=== PATIENT | female | born 1995 | race Caucasian/White ===

== ENCOUNTER 2024-12-22 08:49 | Outpatient (RCR) | payer BC, SELFPAY ==
--- OUTSIDE RECORDS SUMMARY | 2024-12-22 08:58 | XMS_ITS | Clinical Summary ---
Author Organization [facility] on Address [address] [place] [phone] Care Team Providers Care Cattle Rancher Name Role Phone Unavailable Primary Care Provider Unavailabl e Allergies No known active allergies Medications No known medications Active Problems No known active problems Social History Tobacco Use Types Packs/Day Years Used Date Smoking Tobacco: Never Smokeless Tobacco: Never Alcohol Use Standard Drinks/Week Comments Never 0 (1 standard drink = 0.6 oz pur e alcohol) Comments No Sex and Gender Information Value Date Recorded Sex Assigned at Not on file Legal Sex Female 12:45 PM CDT Gender Identity Not on file Sexual Orientation Not on file Last Filed Vital Signs Vital Sign Reading Time Taken Comments Blood Pressure 105/68 06/12/2021 5:03 PM CDT Pulse 73 06/12/2021 5:03 PM CDT Temperature 36.6 C (97.9 F) 06/12/2021 5:03 PM CDT Respiratory Rate 16 06/12/2021 5:03 PM CDT Oxygen Saturation 99% 06/12/2021 5:03 PM CDT Inhaled Oxygen Concentration - - Weight 65.8 kg (145 lb) 06/12/2021 5:03 PM CDT Height 162.6 cm (5' 4) 06/12/2021 5:03 PM CDT Body Mass Index 24.89 06/12/2021 5:03 PM CDT Plan of Treatment Health Maintenance Due Date Last Done Comments DTAP/TDAP/TD VACCINES (1 - Tdap) 2014 HEPATITIS B VACCINES (1 of 3 - 19+ 3-dose series) 2014 CERVICAL CANCER SCREENING 2016 HPV/Cotest (21-29) 2016 PAP SMEAR 2016 INFLUENZA VACCINE (#1) 2024 HPV VACCINES Aged Out No longer eligi ble based on patient's age to complete this topic Insurance [employer]
--- OUTSIDE RECORDS SUMMARY | 2024-12-22 08:59 | XMS_ITS | Data Portability ---
Author Organization [facility] Address [address] [place] [address] Assessment No assessment recorded. Plan of Treatment Reminders Order Date Submit Date Provider Last Modified By Organization Details Last Modified Time Details Appointments None recorded. Lab None recorded. Referral None recorded. Procedures None recorded. Surgeries None recorded. Imaging XR, neck, soft tissue 2015 016 [facility], [address] [place], [address], 6 04:39:53 Medication Orders amoxicillin 500 mg capsule 2015 016 zach [facility], [address] [place] [address], [id number], 7 11:50:17 Zithromax Z-Adán 250 mg tablet 2015 016 ugo [facility], [address] [place] [address], [id number], 6 11:20:05 fluticasone propionate 50 mcg/actuati on nasal spray,suspe nsion 2015 016 [facility], [address] [place] [address], [id number], 6 04:39:31 naproxen 500 mg tablet 2015 016 [facility], [address] [place] [address], [id number], 6 04:39:31 Patient TargetsNo targets recorded. Patient Instructions Encounter Date Encounter Id Patient Instructions Last Modified By Organization Details Last Modified Time 05/17/2017 [id number] Increase fluids, cool foods today, avoid hot, spicy foods for 4 - 5 days. If fever, cough, sore throat or headache, return to care or primary office immediately. OTC tylenol or ibuprofen for discomfort. [email or web address] Not available 05/17/2017 12:16:35 This document ma y have been transcribed with voice recognition technology. Errors in spelling, punctuation, or grammar errors are possible in the pouring crane operator process. If you see a material mistake or require further clarification, contact my office for further information. [email or web address] Not available 05/17/2017 11:46:34 Hospital Discharge Instructions Patient Instructions None recorded. Patient Goals None recorded. Problems Name Problem SNOMED Code Status Onset Date Resolution Date Notes Provider Name and Address Organization Details Recorded Time Chronic back pain [id number] Active Yessica Angeles [facility] 6 09:17:05 Problem Notes None recorded. Medical Equipment None Reported. Allergies No known drug allergies Medications Name Sig Start Date Stop Date Status Note LastModified by Organization Details LastModified Time desonide 0.05 % crea 02/19 completed Not Available Not Available Not Available chlorhexidi ne gluconate 0.12 % soln 02/19 completed Not Available Not Available Not Available strattera 60 mg caps 08/02 completed Not Available Not Available Not Available bupropion hcl xl 150 mg tb24 02/19 completed Not Available Not Available Not Available benzonatate 200 mg caps 02/19 completed Not Available Not Available Not Available hydrocodone /acetaminop hen 7.5-325 mg tabs 02/19 completed Not Available Not Available Not Available sulfamethox azole/trime thoprim ds 800-160 mg tabs 02/19 completed Not Available Not Available Not Available azithromyci n 250 mg tabs 08/02 completed Not Available Not Available Not Available amoxicillin /clavulanat e potassium 500-125 mg tabs 02/19 completed Not Available Not Available Not Available methylpheni date hcl er 54 mg tb24 02/19 completed Not Available Not Available Not Available amoxicillin 500 mg caps 02/19 completed Not Available Not Available Not Available ketoconazol e 2 % sham 02/19 completed Not Available Not Available Not Available methylpredn isolone dose pack 4 mg tbpk 02/19 completed Not Available Not Available Not Available cyclobenzap rine hcl 10 mg tabs 02/19 completed Not Available Not Available Not Available trinessa 0.18/0.215/ 0.25 mg-35 mcg tabs 08/02 completed Not Available Not Available Not Available polyethylen e glycol 3350 powd 08/02 completed Not Available Not Available Not Available naproxen 500 mg tabs 08/02 completed Not Available Not Available Not Available methylpheni date hcl er 36 mg tbcr 02/19 completed Not Available Not Available Not Available sertraline hcl 50 mg tabs 02/19 completed Not Available Not Available Not Available diazepam 10 mg tabs 02/19 completed Not Available Not Available Not Available methylpheni date hcl er 54 mg tbcr 02/19 completed Not Available Not Available Not Available fluticasone propionate 50 mcg/act susp 08/02 completed Not Available Not Available Not Available amoxicillin 500 mg capsule Take 1 capsule every 12 hours by oral route for 10 days. 05/17 completed Not Available Not Available Not Available Zithromax Z-Adán 250 mg tablet TAKE 2 TABLETS (500 MG) BY ORAL ROUTE ONCE DAILY FOR 1 DAY THEN 1 TABLET (250 MG) BY ORAL ROUTE ONCE DAILY FOR 4 DAYS 08/02 completed Not Available Not Available Not Available Zoloft 50 mg tablet Take 1 tablet every day by oral route. 01/28 completed Not Available Not Available Not Available Concerta 54 mg tablet,exte nded release Take 1 tablet every day by oral route. 05/30 completed Not Available Not Available Not Available fluticasone propionate 50 mcg/actuati on nasal spray,suspe nsion Inhale 2 sprays every day by intranasa l route. 06/30 completed Not Available Not Available Not Available naproxen 500 mg tablet Take 1 tablet twice a day by oral route. 06/30 completed Not Available Not Available Not Available TriNessa (28) 0.18 mg(7)/0.215 mg(7)/0.25 mg(7)-35 mcg tablet TAKE 1 TABLET BY MOUTH EVERY DAY DIRECTED -DO NOT SMOKE 2015 active Not Available Not Available Not Avai lable Doryx as directed 02/19 completed Not Available Not Available Not Available Tri-Sprinte c (28) as directed 02/19 completed Not Available Not Available Not Available Vitals Date Recorded Body height Body mass index (BMI) Body weight Body temperature Heart rate Oxygen saturation Oxygen saturation in Arterial blood by Pulse oximetry Systolic blood pressure Diastolic blood pressure Provider Name and Address Organization Details Last Updated DateTime 7 162.56 cm 26.5 kg/m2 43578 g 97.9 [degF] 84 /min 98 % 98 % 90 mm[Hg] 66 mm[Hg] Philippe WALLS CMA [address] [place], [address] [place] [address] 7 11:49:01 Date Recorded Pain severity - 0-10 verbal numeric rating [Score] - Reported Provider Name and Address Organization Details Last Updated DateTime 05/17/2017 0 Not Available [facility] 8 06:32:32 Date Recorded Body height Body weight Body mass index (BMI) Body temperature Systolic blood pressure Diastolic blood pressure Provider Name and Address Organization Details Last Updated DateTime 6 162.56 cm 47223 g 23 kg/m2 97.5 [degF] 110 mm[Hg] 80 mm[Hg] Yessica Prouse [facility] 6 09:23:10 Date Recorded Body height Body weight Body mass index (BMI) Body temperature Systolic blood pressure Diastolic blood pressure Provider Name and Address Organization Details Last Updated DateTime 6 162.56 cm 25502 g 23.1 kg/m2 97.5 [degF] 102 mm[Hg] 66 mm[Hg] Jean-Claude HERNANDEZ LPN [address] [place], [address] [place] [address] 6 11:02:58 Date Recorded Body height Body weight Body mass index (BMI) Body temperature Heart rate Oxygen saturation Oxygen saturation in Arterial blood by Pulse oximetry Systolic blood pressure Diastolic blood pressure Provider Name and Address Organization Details Last Updated DateTime 6 162.56 cm 19217.1 8 g 23.7 kg/m2 97.3 [degF] 81 /min 98 % 98 % 110 mm[Hg] 66 mm[Hg] [facility] 6 10:09:06 Date Recorded Body height Body weight Body mass index (BMI) Body temperature Oxygen saturation Oxygen saturation in Arterial blood by Pulse oximetry Heart rate Systolic blood pressure Diastolic blood pressure Provider Name and Address Organization Details Last Updated DateTime 6 162.56 cm 98203 g 24 kg/m2 97.2 [degF] 98 % 98 % 76 /min 118 mm[Hg] 66 mm[Hg] [facility] 6 11:30:24 Date Recorded Pain severity - 0-10 verbal numeric rating [Score] - Reported Provider Name and Address Organization Details Last Updated DateTime 06/30/2016 3 Not Available [facility] 8 06:29:50 Date Recorded Body height Body weight Body mass index (BMI) Body temperature Heart rate Oxygen saturation Oxygen saturation in Arterial blood by Pulse oximetry Systolic blood pressure Diastolic blood pressure Provider Name and Address Organization Details Last Updated DateTime 6 162.56 cm 66605.3 7 g 24.1 kg/m2 98.4 [degF] 108 /min 95 % 95 % 112 mm[Hg] 63 mm[Hg] Padmini Al[facility] 6 11:19:25 Date Recorded Pain severity - 0-10 verbal numeric rating [Score] - Reported Provider Name and Address Organization Details Last Updated DateTime 08/02/2016 7 Not Available [facility] 8 06:30:00 Social History Question Answer Notes LastModified by Organizat ion Details LastModified Time Tobacco Smoking Status [facility]2016 09:24:33 What Is Your Level Of Caffeine Consumption? Occasional Information not available 01/29/2016 How Much Tobacco Do You Chew? None Information not available 02/20/2016 What Type Of Diet Are You Following? REGULAR Information not available 01/29/2016 Which Illicit Or Recreational Drugs Have You Used? None Information not available 02/20/2016 Are You Exposed To Second Hand Smoke ? Yes Information not available 01/29/2016 What Was The Date Of Your Most Recent Tobacco Screening? 05/17/2017 Information not available 03/03/2019 Sex: Unknown Functional Status Question Answer Note LastModified by Organizat ion Details LastModified Time What is your level of alcohol consumption? Moderate every weekend [email or web address] Information not available 05/17/2017 What is your occupation? student Information not available 01/29/2016 Mental Status None recorded. Family History Relationship Description Onset Age of this Age Resolved Age Notes LastModified by Organization Details LastModified Time Father No current problems or disability [email or web address] Not available 08/02 11:20:59 Mother No current problems or disability [email or web address] Not available 08/02 11:20:59 Medical History Condition Response Coronary Artery Disease N Gout N Other N Blood Diseases N Kidney Stones N Hyperthyroidism N Blood Transfusion N Breast Cancer N Depression N COPD N Lung Disease N Hypothyroidism N Defects or Inherited Disease N Developmental or Behavioral Disorders N Breast Problem N Difficulty Swallowing N Meniere's disease N Anxiety Disorder N Muscle, Joint, or Bone Problems N Vision or Eye Problems N Arthritis N Polyps N Infertility N Cancer N Stroke N Raynaud's Disease N Endometriosis N High Cholesterol N Liver Disease N Headaches N Fibromyalgia N Vulvar Lesion N Kidney Disease N Allergies/Hayfever N Heart Problems N Anesthesia Complications N/V, Diff Intub ) N Ear or Hearing Problems N Hospitalizations N GI Problems N Acne N ADD/ADHD N Skin Problems N Eating Disorder N Anemia N Constipation N Mental Illness N Ovarian Cancer N Diabetes N Bedwetting N Seizures/Epilepsy N Tuberculosis N Eczema N Abuse/Domestic Violence N Asthma N Substance Abuse N Reflux/GERD N Hepatitis N Heart Disease N Pulmonary Embolism N Chronic Ear Infections N Pre-Eclampsia N Hypertension N Chicken Pox N Autism Spectrum Disorder (ASD) N Thrombophilias N Gynecological HistoryNo gynecological history recorded. Obstetrics History GPAL:G 0 P 0 0 0 0 Past Encounters None Reported. Health Concerns Section Related Observation LastModified by Organization Detai ls LastModified Time None Recorded Concern Status LastModified by Organization Details LastModified Time None Recorded Advance Directives Directive None Recorded Payers Insurance Date Sequence Insurance Name Policy Number Policy Lo Covered Member ID Lo Member ID Guarantor Name 05/17/[address] [place] [address] [employer] ([facility]) [id number] Virginia Otero [id number] Virginia Otero 08/19/2015 SLIDING FEE SCHEDULE - DISCOUNT Virginia Otero Notes Date Note Type Note Provider Name and Address Organization Details Recorded Time 01/29/2016 text/html Suzy a 20-year-old who is generally followed by my nurse practitioner. She has an upcoming wedding of her sister. She complains of acute sore throat and a mild earache. She has multiple ear piercings. She was exposed to strep according to her mother. She denies fever or chills. She is drinking fluids well and is taking Tylenol.she denies any abdominal pain. No diarrhea or constipation. Reji jernigan, [facility] 01/29/2016 14:50:12 02/20/2016 text/html Virginia is a 20 year old female presenting to the clinic with chief complaint of problems with constipation, abdominal pain, with occasional nausea, no emesis. She states she has had this problem off and on for the past few years but it has gotten progressively worse in the past few months. she will go 3-4 days without a bowel movement, and will then develop bloaating, pain and nausea. she denies blood in her stool, but states she has developed some hemorrhoids secondary to straining. She has occasionally noticed some mucous. Last BM was this morning, with hard stool followed by softer stool. She had cramping and pain across the lower abdomen and felt nauseated. She is worried something may be wrong, and is wishing referral to gastroenterology for further evaluation. Denies fever, weight loss, or other specific complaints. ROS is otherwise negative. Celina Harrell, SWEAT BAND SEWER [address] [place], [address], [facility] 02/20/2016 14:36:18 05/30/2016 text/html She has been hav ing an annoying feeling ,ithcy at times and runny in the left nostril. This has been going on for several weeks now. She is also complaining of pain on the angle of the left jaw. Pain worse on openning the mouth.Pain is 4/10. No possible injury. Domenico jernigan, [facility] 05/30/2016 10:39:30 06/30/2016 text/html pt with cough, s ore throat and runny nose. pt reports sensation of something stuck in her throat, hurts to swallow and points to area in center of neck/throat. no injury, no fever. no chills. no n/v/d. sx for several days. Padmini Marx APRN, JOINTER MACHINE-BC, PMHNP-BC [address] [place], [address], [facility] 06/30/2016 13:56:44 08/02/2016 text/html This is a pleasa nt 20 year old female patient who presents to the Care with sore throat and ear pain x 1 week throat pain is constant worse with swallowing, no cough, tender lymph nodes, ear pain is mild to the right side. Patient denies fever, chills, sweats, sinus pressure, neck pain, chest pain, nausea, belly pain, vomiting, diarrhea, rash. SOILA Arreola [address] [place], [address], [facility] 08/02/2016 23:48:14 05/17/2017 text/html Patient presents today with reports of a rash to the roof of her mouth since last pm. patient reports looking at the roof of her mouth and seeing a red rash to the roof of her mouth. patient reports last night she ate hot noodles and felt like she burnt her mouth. this am she noticed this white wrinkled region with red dots on it. patient denies any sore throat, fever, chills, muscle aches, headache, N/V/D. [facility] 05/17/2017 12:16:51 OBGyn Episode No OBEpisode recorded.
--- OUTSIDE RECORDS SUMMARY | 2024-12-22 08:59 | XMS_ITS | Clinical Summary ---
Author Organization [facility] Address [address] [place] [address] Care Team Providers Care Tennis Desk Team Member Name Role Phone Tyler Anthony MD Primary Care Provider + Allergies Active Allergy Reactions Criticality Noted Date Comments Coconut (Cocos Nucifera) Unknown 01/27/2020 Egg-Derived Products GI Upset 01/27/2020 Garlic GI Upset 01/27/2020 Onion GI Upset 01/27/2020 Medications 28-0.8 MG tablet Take 1 tablet by mouth daily. Active fish oil (OMEGA-3 FATTY ACID) 1000 MG Cap capsule Take 1 capsule (1,000 mg total) by mouth 2 (two) times daily. Active NON FORMULARY Beef liver vitamin Active Probiotic Product (PROBIOTIC DAILY OR) Active levothyroxine (SYNTHROID) 75 MCG tablet 08/24/2024 Active Active Problems Problem Noted Date Diagnosed Date Chronic back pain 09/09/2024 Change in bowel habits 09/02/2019 Abdominal pain, unspecified abdominal location 0 09/02/2019 ADHD, predominantly hyperactive type 04/19/2016 Mood disturbance 04/29/2012 Comments Yes Immunizations Immunization Administration Dates Next Due Dtap 03/02/2001,03/11/1996,1995 ,1995 Dtap (Generic) 03/02/2001, 7,03/11/1996,1995,1995 Dtp/Hib 11/30/1996 HPV4 (Gardasil) 12/27/2010,06/06/2010,03/07/2010 Hepatitis A (Generic) 01/09/2011,03/07/2010 Hepatitis B Pediatric 03/11/1996,1995,04/1996 Hib 03/11/1996,1995,1995 Hib Vaccine, Prp-T 11/30/1996,03/11/1996, 996,1995 Influenza Adult (Generic) 05/09/2020,08/19/2016 MMR 03/02/2001,11/30/1996 MMR (Generic) 03/02/2001,11/30/1996 Menactra 03/17/2013 Meningococcal 03/07/2010 Opv 03/11/1996,1995,1995 Polio IPV (Ipol) 03/02/2001 Polio Ipv (Generic) 03/02/2001 Tdap (Boostrix) 05/09/2020 Tdap (Generic) 03/07/2010 Typhoid (Typhim ) 12/19/2013 Typhoid Vaccine, Akd 01/09/2011 Yellow Fever (YF- Vax) 01/09/2011 Family History Medical History Relation Comments Hypertension Father Prostate Cancer Maternal Grandfather Cancer Mother breast Relation Status Comments Father Maternal Grandfather Mother Social History Tobacco Use Types Packs/Day Years Used Date Smoking Tobacco: Never Smokeless Tobacco: Never Tobacco Cessation:Counseling Given: No Alcohol Use Standard Drinks/Week Comments Yes 0 (1 standard drink = 0.6 oz pur e alcohol) twice/week PHQ-2 Answer Date Recorded Patient Health Questionnaire-2 Score 0 01/20/2023 Comments Yes Sex and Gender Information Value Date Recorded Sex Assigned at Not on file Legal Sex Female 10:22 PM FOCUSER Gender Identity Not on file Sexual Orientation Not on file Last Filed Vital Signs Vital Sign Reading Time Taken Comments Blood Pressure 100/64 09/09/2024 1:21 PM FOCUSER Pulse 119 09/09/2024 1:21 PM FOCUSER Temperature 37.2 C (99 F) 09/09/2024 1:21 PM FOCUSER Respiratory Rate 18 09/09/2024 1:21 PM FOCUSER Oxygen Saturation 99% 09/09/2024 1:21 PM FOCUSER Inhaled Oxygen Concentration - - Weight 69.8 kg (153 lb 12.8 oz) 09/09/2024 1:21 PM FOCUSER Height 162.6 cm (5' 4) 01/20/2023 7:36 AM CDT Body Mass Index 26.4 01/20/2023 7:36 AM CDT Plan of Treatment Health Maintenance Due Date Last Done Comments Cervical Cancer Screening Pap Smear (Age 21 to 29) Every 3 Years 1995 Cervical Cancer Screening 1995 Hepatitis B Vaccines (3 of 3 - 3-dose series) 05/06/1996 03/11/1996, 1995, 1995 Annual Physical 1998 Hepatitis C 2013 COVID-19 Vaccine ( season) 2024 PHQ-2 (Physician [place]) 08/10/2024 01/20/2023 DTaP, Tdap and Td Vaccines (8 - Td or Tdap) 05/09/2030 05/09/2020, 03/07/2010, 03/02/2001, Additional history exists RSV Immunization or 60+ Years (1 - 1-dose 75+ series) 2070 HPV Vaccines Completed 12/27/2010, 05/11, 03/07/2010 Meningococcal Vaccine Completed 03/17/2013, 010 Meningococcal B Vaccine Aged Out No l onger eligible based on patient's age to complete this topic Pneumococcal Vaccine: Pediatrics (0 to 5 Years) and At-Risk Patients (6 to 49 Years) Aged Out No longer eligible based on patient's age to complete this topic RSV Immunizations Under 20 Months Aged Out No longer eligible based on patient's age to complete this topic Insurance Care Teams Tennis Desk Team Member Relationship Specialty Start Date End Date Tyler Anthony MD [address] [facility] [address] [place] [id number] PCP - General FAMILY PRACTICE 01/15/23
--- OUTSIDE RECORDS SUMMARY | 2024-12-22 08:59 | XMS_ITS | Encounter Summary ---
Author Organization [facility] Address [facility] [place] [address] Care Team Providers Care Wad Impregnator Name Role Phone Tyler Anthony MD Primary Care Provider + Encounter Details Date Type Department Care Team (Late st Contact Info) Description 01/22/2023 Links Global Message [address] [place] [address] Tyler Anthony MD [address] [place] [address] Lab Results 6.13 Social History Tobacco Use Types Packs/Day Years Used Date Smoking Tobacco: Never Smokeless Tobacco: Never Alcohol Use Standard Drinks/Week Comments Yes 0 (1 standard drink = 0.6 oz pur e alcohol) twice/week PHQ-2 Answer Date Recorded Patient Health Questionnaire-2 Score 0 01/20/2023 Comments No Sex and Gender Information Value Date Recorded Sex Assigned at Not on file Legal Sex Female 10:22 PM PACK WORKER SUPERVISOR Gender Identity Not on file Sexual Orientation Not on file COVID-19 Exposure Response Date Recorded In the last 10 days, have yo u been in contact with someone who was confirmed or suspected to have Coronavirus/COVID-19? No / Unsure 01/20/2023 7:16 AM CDT documented as of this encounter Plan of Treatment Not on file documented as of this encounter Visit Diagnoses Not on filedocumented in this encounter Additional Health Concerns Infection Onset Date Last Indicated Resolved Time COVID-19 Rule Out 09/09/2024 09/09/2024 09/09/2024 2:01 PM PACK WORKER SUPERVISOR documented as of this encounter Care Teams Wad Impregnator Relationship Specialty Start Date End Date Tyler Anthony MD [address] [place] [address] PCP - General FAMILY PRACTICE 01/15/23 documented as of this encounter
[2024-12-23] MEDS: RHO(D) IMMUNE GLOBULIN 300 MCG/2 ML SYRINGE IM (08:59)
== END 2025-03-22 23:59 | disposition home or self-care (01) ==
LOC: ANHLAB 08:49
PROVIDERS: Visit Provider Obstetrics & Gynecology
DX: Z36.89 Encounter for other specified antenatal screening (principal)
CPT/HCPCS: 36415; 85461; 86850; 86900; 86901; 90384; 96372; J2790

== ENCOUNTER 2025-03-07 15:17 | Outpatient (RCR) | payer BC, SELFPAY ==
[2025-03-07 16:27] VITALS: BP 113/69; PULSE 98
== END 2025-06-05 23:59 | disposition home or self-care (01) ==
LOC: ANHOBOP 15:17
PROVIDERS: Visit Provider Obstetrics & Gynecology
DX: O36.8130 Decreased fetal movements, third trimester, not applicable or unspecified (principal); Z3A.39 39 weeks gestation of pregnancy
CPT/HCPCS: 59025

== ENCOUNTER 2025-03-15 04:55 | Inpatient (IN) | payer BC, SELFPAY ==
[2025-03-15] VITALS (169 sets, daily range): BP systolic 88–143; BP diastolic 41–92; PULSE 55–202; TEMP 36.1–37.1; O2SAT 79–100; BMI 31.4
--- OUTSIDE RECORDS SUMMARY | 2025-03-15 05:02 | XMS_ITS | Encounter Summary ---
Author Organization [facility] Address [facility] [place] [address] Care Team Providers Care Coal Briquette Machine Operator Name Role Phone Tyler Anthony MD Primary Care Provider + Encounter Details Date Type Department Care Team (Late st Contact Info) Description 01/22/2023 Solvonics Message [facility] [address] [place] [address] Tyler Anthony MD [address] [place] [address] Lab Results 6.13 Social History [...] on file Legal Sex Female 10:22 PM AIR INTERCEPT CONTROLLER Gender Identity Not on file Sexual Orientation [...] Rule Out 09/09/2024 09/09/2024 09/09/2024 2:01 PM AIR INTERCEPT CONTROLLER documented as of this encounter Care Teams Coal Briquette Machine Operator Relationship Specialty Start Date End Date Tyelr Anthony MD [address] [place] [address] PCP - General FAMILY PRACTICE 01/15/23 documented as of this encounter
--- OUTSIDE RECORDS SUMMARY | 2025-03-15 05:02 | XMS_ITS | Clinical Summary ---
Author Organization [facility] Address [address] [place] [address] Care Team Providers Care Director Of Clinical Services Name Role Phone Tyler Anthony MD Primary [...] on file Legal Sex Female 10:22 PM FOOD TESTER Gender Identity Not on file Sexual Orientation Not on file Last Filed Vital Signs Vital Sign Reading Time Taken Comments Blood Pressure 100/64 09/09/2024 1:21 PM FOOD TESTER Pulse 119 09/09/2024 1:21 PM FOOD TESTER Temperature 37.2 C (99 F) 09/09/2024 1:21 PM FOOD TESTER Respiratory Rate 18 09/09/2024 1:21 PM FOOD TESTER Oxygen Saturation 99% 09/09/2024 1:21 PM FOOD TESTER Inhaled Oxygen Concentration - - Weight 69.8 kg (153 lb 12.8 oz) 09/09/2024 1:21 PM FOOD TESTER Height 162.6 cm (5' 4) 01/20/2023 7:36 [...] COVID-19 Vaccine ( season) 2024 PHQ-2 (Physician [place]) 08/10/2024 DTaP, Tdap and Td Vaccines (8 - [...] to complete this topic Insurance Care Teams Director Of Clinical Services Relationship Specialty Start Date End Date Tyler Anthony MD [id number] [address] [place] [address] PCP - General FAMILY PRACTICE 01/15/23
--- OUTSIDE RECORDS SUMMARY | 2025-03-15 05:02 | XMS_ITS | Clinical Summary ---
[facility] Address [address] [place] [id number] Care Team Providers Care Roll Over Loader Name Role Phone Unavailable Primary Care Provider [...] Health Maintenance Due Date Last Done Comments HPV VACCINES (1 - 3-dose series) 2010 DTAP/TDAP/TD VACCINES (1 - Tdap) 2014 HEPATITIS B VACCINES (1 of 3 - 19+ 3-dose series) 11/2014 CERVICAL CANCER SCREENING 2016 HPV/Cotest (21-29) 2016 PAP SMEAR 2016 INFLUENZA VACCINE (#1) 2025 Insurance [employer]
--- NOTE | 2025-03-15 05:41 | LDADM ---
This patient, Virginia Loya, was admitted to Labor/Delivery/Recovery 106 on 03/15/25 at 04:55. Plans for labor, pain management and were discussed with patient. Patient/family oriented to hospital policies and general routines including ID bracelet, bed and alarms, visiting hours, pain management, procedures, bathroom and other care routines, personal items, smoking policy, room service/diet and guest tray routines, security routines, and visiting hours. Patient/Family are encouraged to report perceived risks to care and to ask questions if they do not understand what they are told or what they should do. See OBIX for further documentation.
[2025-03-15 05:44] LABS: Hematocrit 36.1 % (37.0-47.0); Hemoglobin 12.5 g/dL (12.0-15.0); Immature Granulocyte Percent A 0.8 % (0-0.5); Lymphocytes Absolute Auto 1.84 K/mm3 (0.9-3.2); Mean Corpuscular HGB Conc 34.6 g/dl (32-36); Mean Corpuscular Hemoglobin 33.4 pg (26-34); Mean Corpuscular Volume 96.5 fl (80-100); Nucleated Red Blood Cells Absolute Auto 0.000 K/mm3 (0.0-0.012); Nucleated Red Blood Cells Perc 0.0 % (0.0-0.2); Platelet Count Result 155 k/mm3 (150-375); Red Blood Count 3.74 M/mm3 (4.2-5.4); White Blood Count 10.1 K/mm3 (4.5-10.0)
[2025-03-15 06:26] LABS: Syphilis IgG/IgM Antibody Non-Reactive (Nonreactive)
--- NOTE | 2025-03-15 06:47 | PM.IMHP ---
H&P: HPI History of Present Illness Date/Time: 03/15/25 06:47 Chief Complaint: Postdates Narrative: This is a 29-year-old 4 para 0030 whose last menstrual period was 06/22/2024, EDC is 03/08/2025, presents at 41 weeks gestation for induction of labor she is negative for group B strep. This was conceived via IVF she is hypothyroid and has been euthyroid throughout the shows receive RhoGAM at 28 weeks. Her diabetic screen was normal Review of Systems Review of Systems: All systems reviewed & are unremarkable except as noted in HPI and below PMFSH Family History Family History Grandparent Malignant neoplasm of prostate Mother Breast cancer Father Hypertension Social History Social History Smoking status: Never smoker Second hand tobacco smoke exposure: No Substance use: never Lack of Transportation: No Lack of Food: Never True Current Housing: I Have Housing Concerned About Future Housing: No Difficulty Paying Gas/Electric Bills: No Difficulty Paying for Meds: No Currently Unemployed: No Education: Bachelor's Degree Difficulty w/ Childcare or Family Care: No Spiritual care concerns: No Meds Home Medications and Allergies Home Medications ?Medication ?Instructions ?Recorded ?Confirmed ?Type Lactobacillus acidophilus 10 100 mmu cells PO DAILY 02/08/25 02/08/25 History billion cell capsule (NewFlora) levothyroxine 75 mcg capsule 75 mcg PO DAILY 02/08/25 03/15/25 History vits no.130-ferrous fum 1 tablet PO DAILY 02/08/25 03/15/25 History 27 mg iron-folic acid 800 mcg tablet ( Vitamin) Allergies Allergy/AdvReac Type Severity Reaction Status Date / Time No Known Allergies Allergy Verified 03/15/25 06:25 Vital Signs Vital Signs - 24 hr 03/15/25 05:26 03/15/25 05:27 03/15/25 05:30 Pulse Rate 101 H 102 H Blood Pressure 134/74 131/75 Pulse Oximetry 97 Oxygen Delivery 03/15/25 05:31 03/15/25 05:36 03/15/25 05:41 Pulse Rate Blood Pressure Pulse Oximetry 97 97 96 Oxygen Delivery 03/15/25 05:41 03/15/25 05:45 03/15/25 05:46 Pulse Rate 100 Blood Pressure 129/79 Pulse Oximetry 95 Oxygen Delivery Room Air 03/15/25 05:51 03/15/25 05:56 03/15/25 06:24 Pulse Rate 92 Blood Pressure 120/70 Pulse Oximetry 95 96 Oxygen Delivery 03/15/25 06:30 03/15/25 06:45 Pulse Rate 89 89 Blood Pressure 120/73 130/75 Pulse Oximetry Oxygen Delivery Exam Const: General: cooperative, healthy appearing and comfortable Nutritional Appearance: average body habitus Orientation/consciousness: oriented to person, oriented to place and oriented to time HENMT: Head: normal to inspection Resp: Effort & Inspection: normal respiratory effort Cardio: Rate: regular rate Rhythm: regular rhythm Heart sounds: S1 normal heart sound present and S2 normal heart sound present GI: Inspection: normal to inspection (Gravid soft uterus) : External Female Exam: normal external appearance Speculum Exam - Vagina: normal appearance of the vagina Speculum Exam - Cervix: normal appearance of the cervix (Cervix 4/80/1. AROM clear. FHT is reassuring) H&P: Results Labs Labs: Short CBC 03/15/25 Range/Units 05:28 WBC 10.1 H (4.5-10.0) K/mm3 Hgb 12.5 (12.0-15.0) g/dL Hct 36.1 L (37.0-47.0) % Plt Count 155 (150-375) k/mm3 Assessment and Plan Assessment and plan (1) Post-dates : Code(s): O48.0 - Post-term Status: Acute Plan Medical induction of labor. Spontaneous vaginal delivery expected. She has an epidural but is wanting to hold off if possible
--- NOTE | 2025-03-15 08:15 | WPDANESEPP ---
Anes - Eval Pre Procedure Procedure: labor epidural Date/Time: 03/15/25 08:15 Surgeon: tammy Preop Diagnosis: pain during labor Pre Op Diagnosis: IOL Patient Data Age: 29 Gender: F Height: 1.63 m Weight: 83 kg Last Vital Signs Pulse 79 03/15/25 07:30 BP 117/66 03/15/25 07:30 Pulse Ox 96 03/15/25 05:56 O2 Del Method Room Air 03/15/25 05:41 Allergies Allergy/AdvReac Type Severity Reaction Status Date / Time No Known Allergies Allergy Verified 03/15/25 06:25 Home Medications ?Medication ?Instructions ?Recorded ?Confirmed ?Type Lactobacillus acidophilus 10 100 mmu cells PO DAILY 02/08/25 02/08/25 History billion cell capsule (NewFlora) levothyroxine 75 mcg capsule 75 mcg PO DAILY 02/08/25 03/15/25 History vits no.130-ferrous fum 1 tablet PO DAILY 02/08/25 03/15/25 History 27 mg iron-folic acid 800 mcg tablet ( Vitamin) Laboratory Tests 03/15/25 05:28 WBC 10.1 H K/mm3 (4.5-10.0) RBC 3.74 L M/mm3 (4.2-5.4) Hgb 12.5 g/dL (12.0-15.0) Hct 36.1 L % (37.0-47.0) MCV 96.5 fl (80-100) MCH 33.4 pg (26-34) MCHC 34.6 g/dl (32-36) RDW 13.0 % (11.5-14.5) Plt Count 155 k/mm3 (150-375) MPV 11.5 H fl (7.4-10.4) Immature Gran % (Auto) 0.8 H % (0-0.5) Neut % (Auto) 74.5 H % (45.5-73.1) Lymph % (Auto) 18.2 L % (18.3-44.2) [place] % (Auto) 5.2 % (2.6-8.5) Eos % (Auto) 1.1 % (0-4.4) Baso % (Auto) 0.2 % (0.2-1.2) Lymph # (Auto) 1.84 K/mm3 (0.9-3.2) [place] # (Auto) 0.5 K/mm3 (0.1-0.6) Eos # (Auto) 0.1 K/mm3 (0-0.3) Baso # (Auto) 0.0 K/mm3 (0.0-0.1) Abs Immat Gran (auto) 0.08 H K/mm3 (0.00-0.031) Absolute Neuts (auto) 7.5 H K/mm3 (1.3-6.7) Absolute Nucleated RBC 0.000 K/mm3 (0.0-0.012) Nucleated RBC % 0.0 % (0.0-0.2) Syphilis IgG/IgM Ab Non-reactive (Nonreactive) Blood Type O Negative Antibody Screen Positive Antibody Identification Pending Antigen Identification Pending DANIA, IgG Interpret Not Performed DANIA, Poly Interpret Negative DANIA, Complement Interp Not Performed Patient hx anesthesia problems: none Family hx anesthesia problems: none Results Review: All pre-operative results and documents have been reviewed as part of the pre-operative evaluation. [facility] Past Medical History Medical History (Updated 03/15/25 @ 08:16 by Vika Menchaca CRNA) Eczema Hypothyroidism (acquired) Obesity (BMI 30-39.9) IUP (intrauterine ), incidental Family History Family History Grandparent Malignant neoplasm of prostate Mother Breast cancer Father Hypertension Social History Social History Smoking status: Never smoker Second hand tobacco smoke exposure: No Substance use: never Lack of Transportation: No Lack of Food: Never True Current Housing: I Have Housing Concerned About Future Housing: No Difficulty Paying Gas/Electric Bills: No Difficulty Paying for Meds: No Currently Unemployed: No Education: Bachelor's Degree Difficulty w/ Childcare or Family Care: No Spiritual care concerns: No Exam Day of Procedure 03/15/25 08:15
[2025-03-15] MEDS: LACTATED RINGERS 1,000 ML 125 ML IV CONT ×2 (09:34→12:43)
[2025-03-15] MEDS: LEVOTHYROXINE SODIUM 75 MCG TABLET PO (09:34)
[2025-03-15] MEDS: ONDANSETRON INJ 4 MG/2 ML VIAL IV PUSH (10:37)
--- NOTE | 2025-03-15 12:24 | PM.OBPNLAB ---
Pain Control Date/time seen: 03/15/25 12:24 Pain control: tolerating well and epidural Pelvic Exam Dilation (cm): 4 Contractions Monitor mode: External
--- NOTE | 2025-03-15 16:12 | PM.OBPNLAB ---
Pain Control Date/time seen: 03/15/25 16:12 Pain control: tolerating well and epidural Pelvic Exam Dilation (cm): 7 Effacement (%): 100 Contractions Monitor mode: External
[2025-03-15] MEDS: FAMOTIDINE 20 MG/2 ML VIAL IV PUSH (16:54)
[2025-03-15] MEDS: CALCIUM CARBONATE (TUMS) 500 MG (200 MG ELEMENTAL) PO (17:30)
[2025-03-15] MEDS: CALCIUM CARBONATE (TUMS) 500 MG (200 MG ELEMENTAL) (18:54)
[2025-03-15] MEDS: OXYTOCIN 30 UNITS/NS 500 ML 30 UNITS/500 ML BAG 999 UNITS IV CONT (19:49)
[2025-03-15] MEDS: METHYLERGONOVINE MALEATE 0.2 MG/ML VIAL IM (19:56)
--- NOTE | 2025-03-15 19:56 | P.PCNOB_ITS ---
OB - Vaginal Delivery Note Procedure Delivery date: 03/15/25 Events: Other (Postdate ) Induction method: AROM Delivery augmentation: Pitocin Delivery monitor: External FHT and External Uterine Episiotomy description: None Laceration Description: None Specimen: No Quantitative Blood Loss (ml): 162 Anesthesia type: Epidural Disposition: Floor Complications: No immediate complications Narrative: Patient was admitted for induction of labor at 41 weeks gestation artificial rupture membranes performed in the morning. She progressed an unremarkable 1st stage of labor to completely dilated pushed delivered head spontaneously in the IGLESIA position. Anterior posterior shoulder delivered spontaneously. Cord clamped and cut infant passed off the table given Apgars minute 9 [id number]. Cord blood was drawn. Placenta delivered intact spontaneously. Twenty of Pitocin placed IV to help firm the uterus. After inspecting the lateral sidewalls no tears or lacerations were noted. QBL was 162cc mom and baby doing fine at the time of dictation [place] Baby Date of : 03/15/25 Time of : 19:45 Gestational Age by Date: 41 gender: Female presentation: vertex position: Right Occiput Anterior Placenta delivery description: Spontaneous Cord Vessel Description: 3 Vessels score one minute: 9 score five minutes: 9
--- NOTE | 2025-03-15 19:59 | P.DS_ITS ---
DS: Admitting Diagnosis Discharge Date 03/17/2025 Admitting Diagnosis Postdate DS: Summary Hospital Course Reason for hospitalization: Patient was admitted on 03/15/2020 5:00 a.m. for induction of labor at 41 weeks gestation underwent spontaneous vaginal delivery under epidural anesthesia Hospital Course: Patient's hospital course unremarkable. She remained afebrile. She was up, voiding without difficulty, eating regular diet, ambulating, and generally without complaints. Time Spent with Patient Time attestation: Total time spent providing and/or coordinating discharge services: Exam Const: General: cooperative, healthy appearing and comfortable Nutritional Appearance: average body habitus Orientation/consciousness: oriented to person, oriented to place and oriented to time HENMT: Head: normal to inspection Resp: Effort & Inspection: normal respiratory effort Cardio: Rate: regular rate Rhythm: regular rhythm Heart sounds: S1 normal heart sound present and S2 normal heart sound present GI: Inspection: normal to inspection (Gravid soft uterus) : External Female Exam: normal external appearance Speculum Exam - Vagina: normal appearance of the vagina Speculum Exam - Cervix: normal appearance of the cervix (Cervix 4/80/1. AROM clear. FHT is reassuring) DS: Data Data Completed and Pending Labs on day of discharge: Labs from last 24 hours 03/15/25 05:28 WBC 10.1 H RBC 3.74 L Hgb 12.5 Hct 36.1 L MCV 96.5 MCH 33.4 MCHC 34.6 RDW 13.0 Plt Count 155 MPV 11.5 H Immature Gran % (Auto) 0.8 H Neut % (Auto) 74.5 H Lymph % (Auto) 18.2 L [place] % (Auto) 5.2 Eos % (Auto) 1.1 Baso % (Auto) 0.2 Lymph # (Auto) 1.84 [place] # (Auto) 0.5 Eos # (Auto) 0.1 Baso # (Auto) 0.0 Abs Immat Gran (auto) 0.08 H Absolute Neuts (auto) 7.5 H Absolute Nucleated RBC 0.000 Nucleated RBC % 0.0 Syphilis IgG/IgM Ab Non-reactive Blood Type O Negative Antibody Screen Positive Antibody Identification Passive Due to RH Imm Glob Antigen Identification TNP DANIA, IgG Interpret Not Performed DANIA, Poly Interpret Negative DANIA, Complement Interp Not Performed Discharge Plan Discharge Attending physician on discharge: Atul Michael Discharging Clinician: Atul Michael Patient Disposition: Home Activity: may shower, no straining and pelvic rest Diet: heart healthy Wound Care Instructions: follow printed instructions Patient Instructions: Antibiotic Form Patient Language: American Stand Alone Forms: General Discharge Information Follow-up/Referrals: Atul Michael MD [Physician] - Discharge Medications: No Action Vitamin 27 mg iron- 800 mcg tablet 1 tablet PO DAILY levothyroxine 75 mcg capsule 75 mcg PO DAILY NewFlora 10 billion cell capsule 100 mmu cells PO DAILY Date of admission: 03/15/25 04:55 Primary Care Provider: PHYSICIAN,BUILDING SERVICE WORKER Admitting Provider: Atul Michael Attending physician on admission: Atul Michael Condition: Stable
[2025-03-15] MEDS: OXYTOCIN 30 UNITS/NS 500 ML 30 UNITS/500 ML BAG 125 UNITS IV CONT (20:27)
[2025-03-16] VITALS (7 sets, daily range): BP systolic 108–133; BP diastolic 57–74; PULSE 81–106; RESP 15–17; TEMP 36.2–36.7; O2SAT 89–99
[2025-03-16] MEDS: IBUPROFEN 600 MG TABLET PO ×2 (01:02→08:23)
[2025-03-16 04:30] LABS: Hematocrit 31.8 % (37.0-47.0); Hemoglobin 10.6 g/dL (12.0-15.0)
--- NOTE | 2025-03-16 06:14 | P.PNOB_ITS ---
OB - PN: Subj Subjective Date/time seen: 03/16/25 06:14 Patient comments: no complaints, pain well controlled and tolerating diet [place] baby status: doing well OB - PN: Obj Data Labs 03/16/25 04:26 Labs: Laboratory Results - last 24 hr 03/15/25 03/16/25 05:28 04:26 Hgb 10.6 L Hct 31.8 L Syphilis IgG/IgM Ab Non-reactive Blood Type O Negative Antibody Screen Positive Antibody Identification Passive Due to RH Imm Glob Antigen Identification TNP DANIA, IgG Interpret Not Performed DANIA, Poly Interpret Negative DANIA, Complement Interp Not Performed OB - PN A/P Assessment and Plan (1) IUP (intrauterine ), incidental: Code(s): Z33.1 - state, incidental Status: Acute Plan routine care Time Spent With Patient Time: Total time spent is greater than 50% in coordination of care (as documented) at patient's floor/unit and/or counseling patient: Review of Systems 2 Review of Systems: All systems reviewed & are unremarkable except as noted in HPI and below Exam 2 Const: General: cooperative, healthy appearing and comfortable Nutritional Appearance: average body habitus Orientation/consciousness: oriented to person, oriented to place and oriented to time HENMT: Head: normal to inspection Resp: Effort & Inspection: normal respiratory effort Cardio: Rate: regular rate Rhythm: regular rhythm Heart sounds: S1 normal heart sound present and S2 normal heart sound present GI: Inspection: normal to inspection (Gravid soft uterus) : External Female Exam: normal external appearance Speculum Exam - Vagina: normal appearance of the vagina Speculum Exam - Cervix: normal appearance of the cervix (Cervix 4/80/1. AROM clear. FHT is reassuring)
[2025-03-16] MEDS: DOCUSATE SODIUM 100 MG CAPSULE PO (08:23)
[2025-03-16] MEDS: MULTIVIT/MIN/PREN/FOL AC/IRON TABLET 1 TAB PO (08:23)
[2025-03-16] MEDS: ACETAMINOPHEN 325 MG TABLET 650 MG PO (08:25)
--- NOTE | 2025-03-16 10:32 | WPDANLDPN2 ---
Anes-Prog Note L&D Date/Time: 03/16/25 10:32 Comfortable throughout: labor and delivery Neuraxial method: epidural Epidural/Spinal procedure site: clean & non-tender Neuro status: Neuro function grossly intact. Cardiovascular status: normal Respiratory status: normal Airway patency: baseline Mental status: baseline Post-Op hydration status: normal Vital Signs: Last Vital Signs Temp 97.9 F 03/16/25 04:30 Pulse 81 03/16/25 04:32 Resp 15 03/16/25 04:30 BP 133/74 03/16/25 04:32 Pulse Ox 97 03/16/25 04:30 O2 Del Method Room Air 03/15/25 05:41 Pain score (VAS): 0/10 Post-procedural complaints: none Patient feedback: Patient satisfied with anesthetic care.
--- NOTE | 2025-03-16 13:54 | PC.NURSE ---
Report given to Olena ROBLES, awaiting nursery RN availability to give report on baby to transfer pt. upstairs.
--- NOTE | 2025-03-16 14:30 | PC.NURSE ---
Pt. transferred to OB 2nd floor. Olena ROBLES assuming care of patient.
--- NOTE | 2025-03-16 14:38 | PC.NURSE ---
Patient arrived on unit via wheelchair with support person and
--- NOTE | 2025-03-16 15:32 | PC.NURSE ---
Introductions were made, then consulted with patient to assess needs related to . Mother states that she is able to independently latch infant without issues. She does report slight pain when nursing so lanolin and gel cooling pads were provided. Infant latched optimally to the [left] breast in [football] position. Infant was [able] to maintain latch without pain to mother protecting the nipple with optimal positioning and latching. Encouraged patient to call this RN if it has been 2 -2.5 hours since the start of the last , call if does not latch, or if there is discomfort with .
[2025-03-17] MEDS: IBUPROFEN 600 MG TABLET PO ×2 (00:32→08:27)
[2025-03-17 07:25] VITALS: BP 116/61; PULSE 76; RESP 18; TEMP 36.6; O2SAT 99
[2025-03-17] MEDS: RHO(D) IMMUNE GLOBULIN 300 MCG/2 ML SYRINGE IM (08:23)
[2025-03-17] MEDS: MULTIVIT/MIN/PREN/FOL AC/IRON TABLET 1 TAB PO (08:27)
--- NOTE | 2025-03-17 10:50 | PC.NURSE ---
Patient viewed the discharge video Mother & Baby Care, The First Two Weeks. Patient was given the opportunity and encouraged to ask questions. Patient verbalized understanding of information shared and has been given the mother/baby guide for home reference.
[2025-03-17] MEDS: DOCUSATE SODIUM 100 MG CAPSULE PO (12:32)
[2025-03-20 08:21] VITALS: BP 124/80; PULSE 100; RESP 18; TEMP 36.8; O2SAT 100
== END 2025-03-17 11:35 | disposition home or self-care (01) | DRG 807 ==
LOC: ANHLDR 20:00 → ANHOBPP 23:14 → ANHOB2 03-16 14:44
PROVIDERS: Admitting Provider Obstetrics & Gynecology; Visit Provider Obstetrics & Gynecology
DX: O48.0 Post-term pregnancy (principal); Z37.0 Single live birth; O99.284 Endocrine, nutritional and metabolic diseases complicating childbirth; E03.9 Hypothyroidism, unspecified; Z3A.41 41 weeks gestation of pregnancy; O70.0 First degree perineal laceration during delivery
CPT/HCPCS: 36415; 85014; 85018; 85025; 85461; 86593; 86850; 86880; 86900; 86901; 86902; 90384; A9270; J2210; J2405; J2590; J2790; J7120